=== PATIENT | female | born 1945 | race Caucasian/White ===

== ENCOUNTER 2019-04-17 14:25 | Outpatient (RCR) | payer MEDICARE, OTHER ==
--- NOTE | 2019-04-11 13:56 | CARECAPL ---
Assessment Account #s: Initial Assessment General Diagnoses: CABG ( 5 vessel) Date of event: Feb 18, 2019 Allergies: Coded Allergies: phenol (Verified Allergy, Mild, 04/11/19) rosuvastatin (Verified Allergy, Mild, muscle aches, 04/11/19) Date Entered Program: Apr 11, 2019 Risk strat for cardiac event: High (full arrest) Exercise Date: Apr 11, 2019 Assessment: Initial Assessment Exercise Prescription Modalities initiated: Cardio-Strider (will add), Nustep (will add), Arm Aerometer (will add after next surgeon appt), Dumbells (will add), Recumbent Bike (will add) Frequency: 2 Duration (Minutes) 30-60 minutes total exercise a day. 6-12 work intervals in minutes. prn rest intervals in minutes. Functional Capacity Goal Sustained Metabolic Equivalent of a task (MET) goal of 3.0-3.5 for 15-20 minutes. Intensity: 3-Moderate Progression (METS) Increase by: .5 METS every: 2 sessions Angina with ex: No Target Heart Rate 96-125 age predictor Resistance Training: Yes Reps: 6-8 Hypertension: Yes Hypertension controlled with: Diet Resting 154/73 Meds see below Medications Scheduled Aspirin (Aspirin), 325 MG PO DAILY, (Reported) Ezetimibe (Ezetimibe), 10 MG PO QHS, (Reported) Folic Acid (Folic Acid), 1 MG PO DAILY, (Reported) Furosemide (Lasix), 40 MG PO DAILY, (Reported) Melatonin (Melatonin), 3 MG PO QHS, (Reported) Scheduled PRN Fexofenadine HCl (Fexofenadine HCl), 60 MG PO DAILYPRN PRN for CONGESTION, ( Reported) Fluticasone Propionate (Flonase Allergy Relief), 1 SPRAY NARES DAILYPRN PRN for CONGESTION, (Reported) Ipratropium/Albuterol Sulfate (Iprat-Albut 0.5-3(2.5) mg/3 ml), 1 VIAL NEB TIDP PRN for DYSPNEA, (Reported) Discontinued Medications Amiodarone HCl (Amiodarone HCl), 400 MG PO BID, (Reported) Discontinued Reason: Pt states not taking Amiodarone HCl (Amiodarone HCl), 200 MG PO DAILY, (Reported) Discontinued Reason: Pt states not taking Ascorbic Acid (Vitamin C), 500 MG PO DAILY, (Reported) Discontinued Reason: Pt states not taking Docusate Sodium (Stool Softener), 100 MG PO BID, (Reported) Discontinued Reason: Pt states not taking Ferrous Sulfate (Ferrous Sulfate), 325 MG PO BID, (Reported) Discontinued Reason: Pt states not taking Metoprolol Tartrate (Metoprolol Tartrate), 12.5 MG PO BID, (Reported) Discontinued Reason: Pt states not taking Midodrine HCl (Midodrine HCl), 5 MG PO TID, (Reported) Discontinued Reason: Pt states not taking Pantoprazole Sodium (Protonix), 40 MG PO DAILY, (Reported) Discontinued Reason: Pt states not taking Education Goals Met: No Target Goals Individual exercise Rx (1) BP 140/90 or 130/80 if DM or CKD (1) Aerobic active 30+min 5 days per week (1) Nutrition Date: Apr 11, 2019 Assessment: Initial Assessment Duration ezetimbe Diabetes Diabetes: No Weight Management Weight (lbs): 157 Height (inches): 60 Waist Circumference (Inches): 45 BMI: 30.7 Weight goal: 130 Special Diet: low salt, mediteranean diet, low-fat Alcohol: daily Alcohol Type: wine Alcohol Amount: 1-2 Diet Access Tool: Rate your plate Score: 45 Intervention Labor And Employment Paralegal Consult: Yes Nurse/patient discussion: Yes Dietary Goals better choices and smaller portions Target goal LDL-C<100 if triglycerides are >200 Non-HDL-C should be <130 (1) LDL-C<70 for high risk patients (4) HbA1c<7% (1) BMI<25 Waist cir<40in M/<35in F (1) Education Date: Apr 11, 2019 Assessment: Initial Assessment Knowledge Test Score: 9 Tobacco use: No Quit: never smoked Intervention Education class schedule given: Yes Attended education classes: Yes Education Goals Met: No Target Goals Complete cessation of tobacco use (1). Psychosocial Date: Apr 11, 2019 Assessment: Initial Assessment Psych Test (Initial/Discharge) Tool Used: CESD Score: 4 Intervention Physician Consult: No Physician Referral: No Stress Management Class: No (will attend this program) Education Goals Met: No Target Goal Assess presence or absence of depression using a valid screening tool (1). Maximize coping skills (2). Positive support system (2). Patient/Program Goal Preventative Medication: Yes Aspirin, Yes Statin/OTR lipid Lowering Fall Risk Assess: Yes (tug score 14 seconds) Provider Assessment Session Number: 1 Provider Assessment: Proceed with rehab Yasmine Middleton RN Apr 11, 2019 13:56
[~2019-04-17 14:25] MED LIST: AMIO200T PO; AMIO400T5 PO; BAYE325T12 PO; EZET10TA21 PO; FERR325T3 PO; FEXO60TA71 PO; FLON1SPR NARES; FOLI1TAB11 PO; IPRA0.00 NEB; LASI40TA9 PO; MELA3TAB49 PO; METO1TAB87 PO; MIDO5TA PO; PROT1TAB2 PO; STOO100C PO; VITA500C24 PO
== END 2019-04-28 ==
LOC: M CR 14:25
PROVIDERS: ATTEND Internal Medicine Cardiovascular Disease
DX: Z95.1 Presence of aortocoronary bypass graft (principal)

== ENCOUNTER 2019-05-22 09:29 | Outpatient (RCR) | payer MEDICARE, OTHER ==
--- NOTE | 2019-05-06 15:11 | CARECAPL ---
Assessment Account #s: Re-Assessment I General Diagnoses: CABG (5 VESSEL) Date of event: Feb 18, 2019 Physician: Kvng Dawson Allergies: Coded Allergies: phenol (Verified Allergy, Mild, 04/11/19) rosuvastatin (Verified Allergy, Mild, muscle aches, 04/11/19) Date Entered Program: Apr 11, 2019 Risk strat for cardiac event: High (FULL ARREST) Exercise Date: May 06, 2019 Assessment: Re-Assessment I Exercise Prescription Plan TO EDUCATE AND BUILD ENDURANCE THROUGH MONITORED EXERCISE Modalities initiated: Cardio-Strider (METS=2.4/RPE=3.5), Nustep (METS=3.25/RRPE=2.5), Dumbells (2#/RPE=3), Recumbent Bike (METS=3.2/RPE=4) Frequency: 3 Duration (Minutes) 30-60 minutes total exercise a day. 6-15 work intervals in minutes. 5 MIN PRN rest intervals in minutes. Functional Capacity Goal Sustained Metabolic Equivalent of a task (MET) goal of 3.25 - 3.75 for 15-20 minutes. Intensity: 3-Moderate Progression (METS) Increase by: 0.5 METS every: 3-5 sessions Angina with ex: No Target Heart Rate 96-125 AGE PREDICTED Resistance Training: Yes Weight (pounds): 2 Reps: 8-12 Hypertension: Yes Hypertension controlled with: Diet Resting 114/72 Peak Exercise BP 130/80 Medications Scheduled Aspirin (Aspirin), 325 MG PO DAILY, (Reported) Ezetimibe (Ezetimibe), 10 MG PO QHS, (Reported) Folic Acid (Folic Acid), 1 MG PO DAILY, (Reported) Furosemide (Lasix), 40 MG PO DAILY, (Reported) Melatonin (Melatonin), 3 MG PO QHS, (Reported) Scheduled PRN Fexofenadine HCl (Fexofenadine HCl), 60 MG PO DAILYPRN PRN for CONGESTION, (Reported) Fluticasone Propionate (Flonase Allergy Relief), 1 SPRAY NARES DAILYPRN PRN for CONGESTION, (Reported) Ipratropium/Albuterol Sulfate (Iprat-Albut 0.5-3(2.5) mg/3 ml), 1 VIAL NEB TIDP PRN for DYSPNEA, (Reported) Current BP 124/84 Med Change: No Intervention Resistance Training: Yes Education: Self pulse, Ex safety, S/S to report, Low NA diet, BP medication, RPE Scale, Equipment orientation, warm up/cool down, Understand BP, Physical Active Target Goals Individual exercise Rx (1) BP 140/90 or 130/80 if DM or CKD (1) Aerobic active 30+min 5 days per week (1) Nutrition Date: May 06, 2019 Assessment: Re-Assessment I Med Change: No Diabetes Diabetes: No Monitor Blood Sugar at home: No Medication Change: No Blood sugar in range: No Special Diet: low salt, mediteranean diet, low-fat Alcohol: daily Alcohol Type: wine Alcohol Amount: 1-2 Current Weight (pounds): 158.6 Weight Goal 130 Intervention Popcorn Machine Operator Consult: Yes (WILL SEE SANITARY CHEMIST WHILE IN PROGRAM) Nurse/patient discussion: Yes Dietary Goals TO MAKE HEART HEALTHY CHOICES AND SMALLER PORTIONS Diet Class: No Referral to Diabetes education: No Referral to lipid clinic: No Referral to weight mangement p: No Education Eating Healthy Target goal LDL-C<100 if triglycerides are >200 Non-HDL-C should be <130 (1) LDL-C<70 for high risk patients (4) HbA1c<7% (1) BMI<25 Waist cir<40in M/<35in F (1) Education Date: May 06, 2019 Assessment: Re-Assessment I Learning Barriers: ready Family Support: Yes Tobacco use: No Quit: never smoked Tobacco Use Smokeless tobacco: No Intervention Referral to smoking cessation: No Individual education and couns: No Tobacco Adjunct: No Education class schedule given: No Education: CAD, Risk factors, med compliance, cardiac A&P, Angina S/S, Sexuality Target Goals Complete cessation of tobacco use (1). Psychosocial Date: May 06, 2019 Assessment: Re-Assessment I Intervention Physician Consult: No Physician Referral: No Med Change: No Stress Management Class: No Uses Stress Management Skills: Yes Education Education: Coping Techniques, S/S depression, Relaxation Techniques Target Goal Assess presence or absence of depression using a valid screening tool (1). Maximize coping skills (2). Positive support system (2). Patient/Program Goal Preventative Medication: Yes Aspirin Fall Risk Assess: Yes (BASED ON TUG TEST SCORE OF 14) Provider Assessment Session Number: 3 Provider Assessment: Proceed with rehab Jean Pierre Hendrickson RN May 06, 2019 15:11
[~2019-05-22 09:29] MED LIST changes: +MM S100C PO; -STOO100C PO
--- NOTE | 2019-05-29 14:13 | CARECAPL ---
Assessment Account #s: Re-Assessment II General Diagnoses: CABG Date of event: Feb 18, 2019 Physician: Kvng Dawson Allergies: Coded Allergies: phenol (Verified Allergy, Mild, 04/11/19) rosuvastatin (Verified Allergy, Mild, muscle aches, 04/11/19) Date Entered Program: Apr 11, 2019 Risk strat for cardiac event: High (full arrest) Exercise Date: May 29, 2019 Assessment: Re-Assessment II Exercise Prescription Modalities initiated: Treadmill, Cardio-Strider (mts 2.2 rpe 2 5 grissom), Arm Aerometer (rpe 2 mts 1.6 level 1.5), Recumbent Bike (mts 3.2 rpe 5 R2) Duration (Minutes) minutes total exercise a day. work intervals in minutes. rest intervals in minutes. Functional Capacity Goal Sustained Metabolic Equivalent of a task (MET) goal of for minutes. Intensity: 3-Moderate (will continue met goal as stated in prior ITP) Progression (METS) Increase by: METS every: sessions Resistance Training: Yes Weight (pounds): 3 Reps: 8-12 Medications Scheduled Aspirin (Aspirin), 325 MG PO DAILY, (Reported) Ezetimibe (Ezetimibe), 10 MG PO QHS, (Reported) Folic Acid (Folic Acid), 1 MG PO DAILY, (Reported) Furosemide (Lasix), 40 MG PO DAILY, (Reported) Melatonin (Melatonin), 3 MG PO QHS, (Reported) Scheduled PRN Fexofenadine HCl (Fexofenadine HCl), 60 MG PO DAILYPRN PRN for CONGESTION, (Reported) Fluticasone Propionate (Flonase Allergy Relief), 1 SPRAY NARES DAILYPRN PRN for CONGESTION, (Reported) Ipratropium/Albuterol Sulfate (Iprat-Albut 0.5-3(2.5) mg/3 ml), 1 VIAL NEB TIDP PRN for DYSPNEA, (Reported) Current BP 110/70 Med Change: No Intervention Home exercise: Type (walking, bike, weights), Frequency (5-7 times per week), D uration (30-60 minutes) Resistance Training: Yes Education: Self pulse, Ex safety, S/S to report, Low NA diet, BP medication, RPE Scale, Equipment orientation, warm up/cool down, Understand BP, Physical Active Education Goals Met: No (progressing toward goals) Target Goals Individual exercise Rx (1) BP 140/90 or 130/80 if DM or CKD (1) Aerobic active 30+min 5 days per week (1) Nutrition Date: May 29, 2019 Assessment: Re-Assessment II Med Change: No Special Diet: low salt, mediteranean diet, low-fat Intervention Branch Lending Officer Consult: Yes Nurse/patient discussion: Yes Diet Class: Yes Education Goals Met: No (progressing toward goals) Target goal LDL-C<100 if triglycerides are >200 Non-HDL-C should be <130 (1) LDL-C<70 for high risk patients (4) HbA1c<7% (1) BMI<25 Waist cir<40in M/<35in F (1) Education Date: May 29, 2019 Assessment: Re-Assessment II Intervention Attended education classes: Yes Education: CAD, Risk factors, med compliance, cardiac A&P, Angina S/S, Sexuality Education Goals Met: Yes Target Goals Complete cessation of tobacco use (1). Psychosocial Date: May 29, 2019 Assessment: Re-Assessment II Stress Management Class: Yes Uses Stress Management Skills: Yes Education Education: Coping Techniques, S/S depression, Relaxation Techniques Education Goals Met: Yes Target Goal Assess presence or absence of depression using a valid screening tool (1). Maximize coping skills (2). Positive support system (2). Provider Assessment Session Number: 6 Provider Assessment: No changes (poor attendance) Yasmine Middleton RN May 29, 2019 14:13
== END 2019-05-29 ==
LOC: M CR 09:29
PROVIDERS: ATTEND Internal Medicine Cardiovascular Disease
DX: Z95.1 Presence of aortocoronary bypass graft (principal)

== ENCOUNTER 2019-06-14 10:52 | Outpatient (RCR) | payer MEDICARE, OTHER ==
--- NOTE | 2019-06-24 17:43 | CARECAPL ---
Assessment Account #s: Re-Assessment II (discharge assessment) General Diagnoses: CABG Date of event: Feb 18, 2019 Physician: Kvng Dawson Allergies: Coded Allergies: phenol (Verified Allergy, Mild, 04/11/19) rosuvastatin (Verified Allergy, Mild, muscle aches, 04/11/19) Date Entered Program: Apr 11, 2019 Risk strat for cardiac event: High (FULL ARREST) Exercise Date: Jun 24, 2019 Assessment: Re-Assessment II (III) Exercise Prescription Plan TO EDUCATE AND BUILD ENDURANCE THROUGH MONITORED EXERCISE Modalities initiated: Cardio-Strider (METS=2.3/RPE=2.5), Arm Aerometer (METS=2.2/RPE=3), Dumbells (3#/RPE=2), Recumbent Bike (METS=6.0/RPE=3) Frequency: 3 Duration (Minutes) 30-60 minutes total exercise a day. 10-15 work intervals in minutes. 5 MIN NEEDED rest intervals in minutes. Functional Capacity Goal Sustained Metabolic Equivalent of a task (MET) goal of 3.5-4.5 for 15-20 minutes. Intensity: 3-Moderate Progression (METS) Increase by: 0.5 METS every: 5 sessions TOLERATED Angina with ex: No Target Heart Rate 96-125 BASED ON AGE PREDICTED Resistance Training: Yes Weight (pounds): 3 Reps: 8-12 Resting 148/82 Peak Exercise BP 158/82 Medications Scheduled Aspirin (Aspirin), 325 MG PO DAILY, (Reported) Ezetimibe (Ezetimibe), 10 MG PO QHS, (Reported) Folic Acid (Folic Acid), 1 MG PO DAILY, (Reported) Furosemide (Lasix), 40 MG PO DAILY, (Reported) Melatonin (Melatonin), 3 MG PO QHS, (Reported) Scheduled PRN Fexofenadine HCl (Fexofenadine HCl), 60 MG PO DAILYPRN PRN for CONGESTION, (Reported) Fluticasone Propionate (Flonase Allergy Relief), 1 SPRAY NARES DAILYPRN PRN for CONGESTION, (Reported) Ipratropium/Albuterol Sulfate (Iprat-Albut 0.5-3(2.5) mg/3 ml), 1 VIAL NEB TIDP PRN for DYSPNEA, (Reported) Current BP 118/66 Med Change: No Intervention Home exercise: Type (WALKING,BIKING,WEIGHTS), Frequency (5-7 TIMES PER WEEK), Duration (30-60 MINUTES) Resistance Training: Yes Education: Self pulse (PATIENT DEMONSTRATES TAKING SELF PULSE), S/S to report (PATIENT VERBALIZES KNOWLEDGE TO REPORT CHEST PAIN/SOB), Low NA diet (PATIENT VERBALIZES UNDERSTANDING OF LOW SALT DIET, NOT ADDING SALT TO DIET), RPE Scale (DEMONSTRATES EFFORT SCALE INDEPENDENTLY), Equipment orientation (PATIENT ORIENTED TO EACH PIECE OF EQUIPMENT USED), warm up/cool down (DEOMONSTRATES INDEPENDENTLY WARM UP/COOL DOWN), Physical Active (PATIENT VERBALIZES UNDERSTANDING OF IMPORTANCE OF CONTINUED EXERCISE FOLLOWING CARDIAC REHAB PROGRAM) Education Goals Met: No (poor attendance to program) Target Goals Individual exercise Rx (1) BP 140/90 or 130/80 if DM or CKD (1) Aerobic active 30+min 5 days per week (1) Nutrition Date: Jun 24, 2019 Assessment: Followup/Discharge Lipid- med/supplement EZETIMIBE 10 MG AT HS Med Change: No Diabetes Diabetes: No Monitor Blood Sugar at home: No Medication Change: No Weight Management Weight (lbs): 156.2 Special Diet: low salt, mediteranean diet, low-fat Current Weight (pounds): 156.2 Intervention Proprietary Trader Consult: Yes Nurse/patient discussion: Yes Dietary Goals HEART HEALTHY CHOICES/SMALLER PORTIONS Diet Class: Yes (WILL SEE PORTER HEAD WHILE IN CARDIAC REHAB CLASS) Referral to Diabetes education: No Referral to lipid clinic: No Referral to weight mangement p: No Education Eating Healthy Education Goals Met: No (PROGRESSING SLOWLY TOWARD GOALS poor attendance to program) Target goal LDL-C<100 if triglycerides are >200 Non-HDL-C should be <130 (1) LDL-C<70 for high risk patients (4) HbA1c<7% (1) BMI<25 Waist cir<40in M/<35in F (1) Education Date: Jun 24, 2019 Assessment: Followup/Discharge Learning Barriers: ready Family Support: Yes Tobacco use: No Tobacco Use Smokeless tobacco: No Intervention Referral to smoking cessation: No Individual education and couns: No Tobacco Adjunct: No Education class schedule given: No Attended education classes: No Education: CAD, Risk factors, med compliance, cardiac A&P, Angina S/S, Sexuality Education Goals Met: No (PROGRESSING SLOWLY TOWARD GOALS poor attendance to program) Target Goals Complete cessation of tobacco use (1). Psychosocial Date: Jun 24, 2019 Assessment: Followup/Discharge Intervention Physician Consult: No Physician Referral: No Med Change: No Stress Management Class: No Uses Stress Management Skills: Yes Education Education: Coping Techniques, S/S depression, Relaxation Techniques Education Goals Met: No (PROGRESSING SLOWLY TOWARD GOALS) Target Goal Assess presence or absence of depression using a valid screening tool (1). Maximize coping skills (2). Positive support system (2). Patient/Program Goal Preventative Medication: Yes Aspirin, Yes Statin/OTR lipid Lowering Fall Risk Assess: Yes (NOT A FALL RISK) Provider Assessment Session Number: 8 Provider Assessment: No changes (POOR ATTENDENCE - has requested not to finish program. discharged this date) Jean Pierre Hendrickson RN Jun 24, 2019 17:43
== END 2019-06-29 ==
LOC: M CR 10:52
PROVIDERS: ATTEND Internal Medicine Cardiovascular Disease
DX: Z95.1 Presence of aortocoronary bypass graft (principal)

== ENCOUNTER 2019-12-25 09:41 | Day surgery (SDC) | payer MEDICARE, OTHER ==
[~2019-12-25] VITALS: Ht 152.4 cm; Wt 65.2 kg
[2019-12-25] MEDS ORDERED: NS 1,000 ML IV ONE (10:00)
[2019-12-25] MEDS ORDERED: TELM1TAB35 PO (10:40)
[2019-12-25] MEDS ORDERED: LIDOCAINE 2% INJ 100 MG/5 ML SDV (FOR ANES.) As Ordered ONE (11:13)
[2019-12-25] MEDS ORDERED: propofoL 200 MG/20 ML VIAL As Ordered ONE (11:13)
[2019-12-25] MEDS ORDERED: fentaNYL 100 MCG/2 ML INJECTION (J3010) As Ordered ONE (11:14)
--- NOTE | 2019-12-25 11:44 | ROOR ---
Patient Name: Marielena Machado Procedure Date: 12/25/2019 11:16 AM Date of : 1945 Age: 74 Room: [facility] [place] Gender: Female Note Status: Finalized Procedure: Upper Endoscopy + Biopsies Indications: Dysphagia Providers: Jean Pierre Sears MD Referring MD: MARIANGEL JUÁREZ MD Requesting Provider: Medicines: Monitored Anesthesia Care Complications: No immediate complications. Procedure: Pre-Anesthesia Assessment: - The heart rate, respiratory rate, oxygen saturations, blood pressure, adequacy of pulmonary ventilation, and response to care were monitored throughout the procedure. The Endoscope was introduced through the mouth, and advanced to the second part of duodenum. The upper GI endoscopy was accomplished without difficulty. The patient tolerated the procedure well. Findings: The Z-line was irregular and was found 30 cm from the incisors. Multiple biopsies were obtained with cold forceps for evaluation to rule out Foley's Esophagus randomly at the gastroesophageal junction. Severe esophagitis with bleeding was found 30 cm from the incisors. Biopsies were taken with a cold forceps for histology. One benign-appearing, intrinsic moderate (circumferential scarring or stenosis; an endoscope may pass) stenosis was found 30 cm from the incisors. The stenosis was traversed. A medium-sized hiatal hernia was present. No other significant abnormalities were identified in a careful examination of the stomach. The exam of the duodenum was otherwise normal. Impression: - Z-line irregular, 30 cm from the incisors. - Severe reflux esophagitis. Rule out Foley's esophagus. Biopsied. - Benign-appearing esophageal stenosis. - Medium-sized hiatal hernia. - Multiple biopsies were obtained at the gastroesophageal junction. - The examination was otherwise normal. Recommendation: - Await pathology results. - Discharge patient to home. - Follow an antireflux regimen. - Use Prilosec (omeprazole) 40 mg PO daily. - Use sucralfate tablets 1 gram PO BID. - Resume aspirin at prior dose today. - Await pathology results. - Telephone GI clinic for pathology results in 1 week. - Return to my office in 2 months. - Return to referring physician. - The findings and recommendations were discussed with the patient's family. Jean Pierre Sears MD Jean Pierre Sears MD 12/25/2019 11:43:31 AM Electronically signed by Jean Pierre Sears MD Number of Addenda: 0 Note Initiated On: 12/25/2019 11:16 AM Estimated Blood Loss: Estimated blood loss: none.
[2019-12-25 11:50] VITALS: BP 157/74
== END 2019-12-25 12:09 | disposition home or self-care (01) ==
LOC: M OPP 09:41
PROVIDERS: ATTEND Internal Medicine Gastroenterology
DX: K22.8 Other specified diseases of esophagus (principal); K21.0 Gastro-esophageal reflux disease with esophagitis; K22.2 Esophageal obstruction; K44.9 Diaphragmatic hernia without obstruction or gangrene; R13.10 Dysphagia, unspecified; Z79.82 Long term (current) use of aspirin; Z79.899 Other long term (current) drug therapy; Z88.1 Allergy status to other antibiotic agents; Z88.8 Allergy status to other drugs, medicaments and biological substances
CPT/HCPCS: 43239; 88305; J3010

== ENCOUNTER 2020-01-13 11:42 | Day surgery (SDC) | payer MEDICARE, OTHER ==
[~2020-01-13] VITALS: Ht 152.4 cm; Wt 64.0 kg
[~2020-01-13 11:42] MED LIST changes: +NS 1,000 ML IV ONE; +SYMB80INH INH; +TELM1TAB35 PO; +TUMS500C PO
[2020-01-13] MEDS ORDERED: LIDOCAINE 2% INJ 100 MG/5 ML SDV (FOR ANES.) As Ordered ONE (13:33)
[2020-01-13] MEDS ORDERED: propofoL 200 MG/20 ML VIAL As Ordered ONE (13:33)
[2020-01-13] MEDS ORDERED: fentaNYL 100 MCG/2 ML INJECTION (J3010) As Ordered ONE (13:34)
--- NOTE | 2020-01-13 13:59 | ROOR ---
Patient Name: Marielena Machado Procedure Date: 01/13/2020 1:37 PM Date of : 1945 Age: 74 Room: [facility] Gender: Female Note Status: Finalized Procedure: Upper GI endoscopy + [place] Dilatation. Indications: Dysphagia Providers: Jean Pierre Sears MD Referring MD: MARIANGEL JUÁREZ MD Requesting Provider: Medicines: Monitored Anesthesia Care Complications: No immediate complications. Procedure: Pre-Anesthesia Assessment: - The heart rate, respiratory rate, oxygen saturations, blood pressure, adequacy of pulmonary ventilation, and response to care were monitored throughout the procedure. The Endoscope was introduced through the mouth, and advanced to the second part of duodenum. The upper GI endoscopy was accomplished without difficulty. The patient tolerated the procedure well. Findings: One benign-appearing, intrinsic severe (stenosis; an endoscope cannot pass) stenosis was found 30 cm from the incisors. The stenosis was traversed after dilation. A TTS dilator was passed through the scope. Dilation with a 10-11-12 mm balloon and a 12-13.5-15 mm balloon dilator was performed to 15 mm. The dilation site was examined and showed complete resolution of luminal narrowing. A medium-sized hiatal hernia was present. No other significant abnormalities were identified in a careful examination of the stomach. The exam of the duodenum was otherwise normal. Impression: - Benign-appearing esophageal stenosis. Dilated. - Medium-sized hiatal hernia. - No specimens collected. - The examination was otherwise normal. Recommendation: - Patient has a contact number available for emergencies. The signs and symptoms of potential delayed complications were discussed with the patient. Return to normal activities tomorrow. Written discharge instructions were provided to the patient. - Soft diet. - Discharge patient to home. - Use sucralfate suspension 1 gram PO BID. - Use Prilosec (omeprazole) 40 mg PO BID. - Return to referring physician. - Repeat upper endoscopy in 6 weeks for retreatment. - Return to referring physician. - The findings and recommendations were discussed with the patient's family. Jean Pierre Sears MD Jean Pierre Sears MD 01/13/2020 1:59:22 PM Electronically signed by Jean Pierre Sears MD Number of Addenda: 0 Note Initiated On: 01/13/2020 1:37 PM Estimated Blood Loss: Estimated blood loss: none.
[2020-01-13 14:25] VITALS: BP 150/70
== END 2020-01-13 14:30 | disposition home or self-care (01) ==
LOC: M OPP 11:42
PROVIDERS: ATTEND Internal Medicine Gastroenterology
DX: K22.2 Esophageal obstruction (principal); K44.9 Diaphragmatic hernia without obstruction or gangrene; I48.91 Unspecified atrial fibrillation; I51.9 Heart disease, unspecified; Z79.899 Other long term (current) drug therapy; Z88.1 Allergy status to other antibiotic agents; Z88.8 Allergy status to other drugs, medicaments and biological substances
CPT/HCPCS: 43239; J3010

== ENCOUNTER 2020-02-19 05:59 | Day surgery (SDC) | payer MEDICARE, OTHER ==
[~2020-02-19] VITALS: Ht 152.4 cm; Wt 64.4 kg
[~2020-02-19 05:59] MED LIST changes: +ASPI81TA85 PO; +ICAPTAB PO; -NS 1,000 ML IV ONE; +SUCR1SS PO
[2020-02-19] MEDS ORDERED: LIDOCAINE 1% MDV 20ML VIAL SQ PRN (06:00)
[2020-02-19] MEDS ORDERED: LR 1,000 ML IV ONE (06:15)
[2020-02-19] MEDS ORDERED: MIDAZOLAM INJ 2MG/2ML VIAL (J2250 PER 1MG) As Ordered ONE (06:45)
[2020-02-19] MEDS ORDERED: fentaNYL 100 MCG/2 ML INJECTION (J3010) As Ordered ONE (06:46)
[2020-02-19] MEDS ORDERED: LIDOCAINE 2% 100MG/5ML SDV (FOR ANES.) As Ordered ONE (06:47)
[2020-02-19] MEDS ORDERED: propofoL 200 MG/20 ML VIAL As Ordered ONE (06:47)
[2020-02-19] MEDS ORDERED: SUCCINYLCHOLINE 100 MG/5 ML SYRINGE (J0330) As Ordered ONE (07:00)
[2020-02-19] MEDS ORDERED: ONDANSETRON 4MG/2ML VIAL As Ordered ONE (07:50)
[2020-02-19] MEDS ORDERED: dexameTHASONE 4 MG/ML 1ML VIAL (J1100 PER 1MG) As Ordered ONE (07:50)
[2020-02-19] MEDS ORDERED: ONDANSETRON 4MG/2ML VIAL IV PRN (08:30)
[2020-02-19] MEDS ORDERED: LR 1,000 ML IV SCH (08:30)
[2020-02-19] MEDS ORDERED: fentaNYL 100 MCG/2 ML INJECTION (J3010) IV PRN (08:30)
--- NOTE | 2020-02-19 08:37 | ROOR ---
Patient Name: Marielena Machado Procedure Date: 02/19/2020 7:26 AM Date of : 1945 Age: 74 Room: [facility] Gender: Female Note Status: Finalized Procedure: Upper GI endoscopy + Balloon Dilatation + Biopsies Indications: Dysphagia, Suspected stenosis of the esophagus, Exclusion of esophageal stenosis, For therapy of esophageal stenosis Providers: Jean Pierre Sears MD Referring MD: MARIANGEL JUÁREZ MD Requesting Provider: Medicines: General Anesthesia Complications: No immediate complications. Procedure: Pre-Anesthesia Assessment: - The heart rate, respiratory rate, oxygen saturations, blood pressure, adequacy of pulmonary ventilation, and response to care were monitored throughout the procedure. The Endoscope was introduced through the mouth, and advanced to the second part of duodenum. The upper GI endoscopy was accomplished without difficulty. The patient tolerated the procedure well. Findings: The Z-line was irregular and was found 30 cm from the incisors. Several biopsies were obtained with cold forceps for evaluation to rule out Foley's Esophagus randomly in the lower third of the esophagus. One benign-appearing, intrinsic severe (stenosis; an endoscope cannot pass) stenosis was found 34 cm from the incisors. The stenosis was traversed after dilation. A TTS dilator was passed through the scope. Dilation with a 10-11-12 mm balloon, a 12-13.5-15 mm balloon and a 15-16.5-18 mm balloon dilator was performed to 18 mm. The dilation site was examined and showed complete resolution of luminal narrowing. A large hiatal hernia was present. No other significant abnormalities were identified in a careful examination of the stomach. The exam of the duodenum was otherwise normal. Impression: - Z-line irregular, 30 cm from the incisors. - Benign-appearing esophageal stenosis. Dilated. - Large hiatal hernia. - Several biopsies were obtained in the lower third of the esophagus. - The examination was otherwise normal. Recommendation: - Patient has a contact number available for emergencies. The signs and symptoms of potential delayed complications were discussed with the patient. Return to normal activities tomorrow. Written discharge instructions were provided to the patient. - Soft diet. - Discharge patient to home. - Follow an antireflux regimen. - Use Prilosec (omeprazole) 40 mg PO BID. - Use sucralfate suspension 1 gram PO QID. - Return to my office in 3 weeks. - The findings and recommendations were discussed with the patient. Jean Pierre Sears MD Jean Pierre Sears MD 02/19/2020 8:37:12 AM Electronically signed by Jean Pierre Sears MD Number of Addenda: 0 Note Initiated On: 02/19/2020 7:26 AM Estimated Blood Loss: Estimated blood loss: none.
[2020-02-19 09:15] VITALS: BP 150/65
== END 2020-02-19 09:26 | disposition home or self-care (01) ==
LOC: M SDC 05:59
PROVIDERS: ATTEND Internal Medicine Gastroenterology
DX: R13.10 Dysphagia, unspecified (principal); K22.2 Esophageal obstruction; K44.9 Diaphragmatic hernia without obstruction or gangrene; I48.91 Unspecified atrial fibrillation; I10 Essential (primary) hypertension; I25.10 Atherosclerotic heart disease of native coronary artery without angina pectoris; I25.2 Old myocardial infarction; E78.5 Hyperlipidemia, unspecified; Z95.1 Presence of aortocoronary bypass graft; J45.909 Unspecified asthma, uncomplicated; F41.9 Anxiety disorder, unspecified; Z79.82 Long term (current) use of aspirin; Z79.899 Other long term (current) drug therapy; Z88.8 Allergy status to other drugs, medicaments and biological substances; Z88.1 Allergy status to other antibiotic agents
CPT/HCPCS: 43249; 88305; J0330; J1100; J2405; J3010

== ENCOUNTER → 2021-03-05 | Outpatient (REF) | payer MEDICARE, OTHER ==
[~2021-03-05] MED LIST changes: -AMIO200T PO; +AMIO200T3 PO; -ASPI81TA85 PO; +ASPI81TA86 PO
== END ==
LOC: M LAB REF 11:19
PROVIDERS: ATTEND Dermatology
DX: L82.0 Inflamed seborrheic keratosis (principal)

== ENCOUNTER → 2024-07-17 | Outpatient (CLI) | payer MEDICARE, OTHER ==
[~2024-07-17] MED LIST changes: -AMIO200T3 PO; +AMIO200T49 PO; -AMIO400T5 PO; +AMIO400T6 PO; -FEXO60TA71 PO; +FEXO60TA98 PO
== END ==
LOC: M SOG 07:23
PROVIDERS: ATTEND Orthopaedic Surgery
DX: M25.512 Pain in left shoulder (principal); M85.812 Other specified disorders of bone density and structure, left shoulder; M79.89 Other specified soft tissue disorders; S42.212A Unspecified displaced fracture of surgical neck of left humerus, initial encounter for closed fracture; S42.292A Other displaced fracture of upper end of left humerus, initial encounter for closed fracture; S42.302A Unspecified fracture of shaft of humerus, left arm, initial encounter for closed fracture; X58.XXXA Exposure to other specified factors, initial encounter; Y92.9 Unspecified place or not applicable; Y93.9 Activity, unspecified; Y99.9 Unspecified external cause status

== ENCOUNTER → 2024-07-31 | Outpatient (CLI) | payer MEDICARE, OTHER | LOC: M SOG 07:24 | PROVIDERS: ATTEND Orthopaedic Surgery | DX: S42.352A Displaced comminuted fracture of shaft of humerus, left arm, initial encounter for closed fracture (principal); Y93.9 Activity, unspecified; Y92.9 Unspecified place or not applicable ==

== ENCOUNTER → 2024-08-21 | Outpatient (CLI) | payer MEDICARE, OTHER | LOC: M SOG 07:28 | PROVIDERS: ATTEND Orthopaedic Surgery | DX: S42.202D Unspecified fracture of upper end of left humerus, subsequent encounter for fracture with routine healing (principal) ==